=== PATIENT | female | born 1960 | race Caucasian/White ===

== ENCOUNTER 2022-06-12 09:42 | Outpatient (CLI) | payer BC | END 2022-06-12 09:43 | disposition home or self-care (01) | LOC: BICMAMMO 09:42 | PROVIDERS: ATTEND Internal Medicine | DX: Z12.31 Encounter for screening mammogram for malignant neoplasm of breast (principal) | CPT/HCPCS: 77063; 77067 ==

== ENCOUNTER 2023-06-12 10:57 | Outpatient (CLI) | payer BC | END 2023-06-12 10:58 | disposition home or self-care (01) | LOC: BICMAMMO 10:57 | PROVIDERS: ATTEND Internal Medicine | DX: Z12.31 Encounter for screening mammogram for malignant neoplasm of breast (principal) | CPT/HCPCS: 77063; 77067 ==